=== PATIENT | female | born 1990 | race Caucasian/White ===

== ENCOUNTER 2016-10-29 15:00 | Emergency (ER) | payer MEDICAID ==
[~2016-10-29] VITALS: Ht 157.5 cm; Wt 76.0 kg
[~2016-10-29 15:00] MED LIST: BEN25 PO; DIAZ-90 PO; HYDR-3498 PO; HYDR-906 PO; IBUP-1542 PO; OMEP20CA9 PO
[2016-10-29 15:09] VITALS: Ht 157.5 cm; Wt 76.0 kg
--- NOTE | 2016-10-29 16:12 | RADRPT ---
PROCEDURE: Abdominal Ultrasound (right upper quadrant). CLINICAL INDICATION: Abdominal pain. TECHNIQUE: Multiple real-time longitudinal and transverse images of the right upper quadrant of th e abdomen were acquired utilizing a curved array transducer. Images were reviewed on a high-resoluti on PACS workstation. COMPARISON: None FINDINGS: The liver demonstrates increased echogenicity consistent with fatty infiltration. The liver is norm al in size. No focal masses are identified. There is borderline extrahepatic ductal dilatation, no rmal in the post cholecystectomy setting. The common bile duct measures 6.7 mm in diameter. The gal lbladder is surgically absent. The visualized portions of the pancreas are unremarkable with obscuration of the tail of the pancrea s. No free fluid is identified. There is no evidence of right hydronephrosis or renal calcification. The right kidney measures 11.1 cm in length. The visualized portions of the aorta and inferior vena cava are within normal limits. IMPRESSION: 1. Fatty infiltration of the liver. 2. Status post cholecystectomy. 3. Otherwise unremarkable right upper quadrant ultrasound. RPTAT: KK .Eron Villasenor MD, MD Date Time Electronically viewed and signed by .Eron Villasenor MD, MD on 10/29/2016 16:12 .B/
--- NOTE | 2016-10-29 16:34 | ERD ---
ER Documentation Chief Complaint Date/Time DATE: 10/29/16 TIME: 16:33 Chief Complaint Sent from MD for eval abdominal pain and 6 weeks HPI Patient is a 26-year-old female who is with a last normal menstrual period sometime in August 2016 who presents to the ED with mild pelvic pain and mild vaginal spotting that started today. She also states that she has had some mild epigastric and right upper quadrant pain. Denies vomiting or diarrhea. Denies fever or chills. She states that she went to her clinic at [facility] and was sent here for ultrasound. Denies other areas of abdominal pain. Denies constipation. Denies leg pain or leg swelling. Denies chest pain or cough or shortness of breath. No other complaints. ROS All systems reviewed and are negative except as per history of present illness. Medications Home Meds Active Scripts Diazepam* (Valium*) 5 Mg Tablet, 5 MG PO Q8, #10 TAB Prov:LEONARDA JALLOH PA-C 04/04/16 Diphenhydramine Hcl* (Benadryl*) 25 Mg Cap, 25 MG PO Q6, #30 CAP Prov:LEONARDA JALLOH PA-C 04/04/16 Ibuprofen* (Motrin*) 600 Mg Tab, 600 MG PO Q6, #30 TAB Prov:LEONARDA JALLOH PA-C 04/04/16 Hydrocodone/Acetaminophen (Logan 5-325 Tablet) 1 Each Tablet, 1 EACH PO Q4 for 15 Days, TAB Prov:LEONARDA JALLOH PA-C 04/04/16 Omeprazole* (Prilosec*) 20 Mg Capsule.dr, 20 MG PO DAILY, #60 CAP Prov:MANDEEP LEWIS DO 07/08/15 Ibuprofen* (Motrin*) 600 Mg Tab, 600 MG PO Q6H Y for PAIN AND OR ELEVATED TEMP, #30 TAB Prov:MANDEEP LEWIS DO 07/08/15 Hydrocodone Bit-Acetaminophen* (Logan*) 5-325 Mg Tab, 1 TAB PO Q6 Y for PAIN, # 20 TAB Prov:MANDEEP LEWIS DO 07/08/15 Allergies Allergies: Coded Allergies: No Known Allergies (Verified Allergy, Mild, 04/04/16) PMhx/Soc History of Surgery: Yes (C-SECTIONX2, CHOLECYSTECTOMY ) Anesthesia Reaction: No Hx Neurological Disorder: No Hx Respiratory Disorders: No Hx Cardiac Disorders: No Hx Psychiatric Problems: No Hx Miscellaneous Medical Probl: No Hx Alcohol Use: No Hx Substance Use: No Hx Tobacco Use: No Smoking Status: Never smoker FmHx Family History: No coronary disease, No diabetes, No other Physical Exam Vitals Vital Signs Date Time Temp Pulse Resp B/P Pulse Ox O2 Delivery O2 Flow Rate FiO2 10/29/16 15:09 99.2 52 20 111/62 100 Physical Exam GENERAL: Well-developed, well-nourished female. Appears in no acute distress. HEAD: Normocephalic, atraumatic. EYES: Pupils are equally reactive bilaterally. EOMs grossly intact. No conjunctival erythema. ENT: Moist mucous membranes. No uvula deviation. No kissing tonsils. No exudates. NECK: Supple. No lymphadenopathy or thyromegaly. No meningismus. negative kernig. negative brudinski. LUNG: Clear to auscultation bilaterally. No rhonchi, wheezing, rales or coarse breath sounds. HEART: Regular rate and rhythm. No murmurs, rubs or gallops. ABDOMEN: No scars, ecchymosis or rashes noted. Soft, and nondistended. Positive bowel sounds in all four quadrants. No rebound tenderness, no guarding. (-) McBurneys point tenderness. No CVA tenderness. Mild bilateral pelvic pain and suprapubic pain. Mild epigastric pain BACK: No midline tenderness. Extremities: Equal pulses bilaterally. No peripheral clubbing, cyanosis or edema. No unilateral leg swelling. NEUROLOGIC: Alert and oriented. Moving all four extremities. 5/5 strength in all extremities. Normal speech. Steady gait. SKIN: Normal color. Warm and dry. No rashes or lesions. Capillary refill < 2 seconds Result Diagram: 10/29/16 1630 10/29/16 1630 Results 24 hrs Laboratory Tests Test 10/29/16 16:25 10/29/16 16:30 Urine Color YELLOW Urine Clarity SLIGHTLY CLOUDY Urine pH 6.0 Urine Specific [place] 1.009 Urine Ketones NEGATIVEmg/dL Urine Nitrite NEGATIVEmg/dL Urine Bilirubin NEGATIVEmg/dL Urine Urobilinogen NEGATIVEmg/dL Urine Leukocyte Esterase NEGATIVELeu/ul Urine Microscopic RBC 1/HPF Urine Microscopic WBC 1/HPF Urine Squamous Epithelial Cells FEW/HPF Urine Bacteria FEW/HPF Urine Mucus FEW/HPF Urine Hemoglobin NEGATIVEmg/dL Urine Glucose NEGATIVEmg/dL Urine Total Protein NEGATIVEmg/dl White Blood Count 5.710^3/ul Red Blood Count 4.3410^6/ul Hemoglobin 12.8g/dl Hematocrit 37.4% Mean Corpuscular Volume 86.2fl Mean Corpuscular Hemoglobin 29.5pg Mean Corpuscular Hemoglobin Concent 34.2g/dl Red Cell Distribution Width 12.4% Platelet Count 13333^3/UL Mean Platelet Volume 10.4fl Neutrophils % 63.3% Lymphocytes % 29.2% Monocytes % 5.1% Eosinophils % 1.8% Basophils % 0.4% Nucleated Red Blood Cells % 0.0/100WBC Neutrophils # 3.610^3/ul Lymphocytes # 1.710^3/ul Monocytes # 0.310^3/ul Eosinophils # 0.110^3/ul Basophils # 0.010^3/ul Nucleated Red Blood Cells # 0.010^3/ul Sodium Level 141mmol/L Potassium Level 3.8mmol/L Chloride Level 102mmol/L Carbon Dioxide Level 25mmol/L Anion Gap 18 Blood Urea Nitrogen 4mg/dl Creatinine 0.55mg/dl Glucose Level 81mg/dl Calcium Level 10.4mg/dl Total Bilirubin 0.4mg/dl Direct Bilirubin 0.00mg/dl Indirect Bilirubin 0.4mg/dl Aspartate Amino Transf (AST/SGOT) 24IU/L Alanine Aminotransferase (ALT/SGPT) 38IU/L Alkaline Phosphatase 56IU/L Total Protein 8.4g/dl Albumin 5.0g/dl Globulin 3.40g/dl Albumin/Globulin Ratio 1.47 Lipase 69U/L Beta HCG, Quantitative 542339.0mIU/ml Procedures/MDM ER COURSE: I kept the patient and/or family informed of laboratory and diagnostic imaging results throughout the emergency room course. EKG, MONITORS, & DIAGNOSTIC IMAGIN [place] [address] Radiology Main Line: [phone] DIAGNOSTIC IMAGING REPORT Patient: FERMIN PINEDA : 1990 Age: 26 Sex: F MR #: [id number] DOS: 10/29/16 1540 Ordering MD: NIESHA DOMINGUEZ PA-C Location: [facility] Room/Bed: PROCEDURE: Abdominal Ultrasound (right upper quadrant). CLINICAL INDICATION: Abdominal pain. TECHNIQUE: Multiple real-time longitudinal and transverse images of the right upper quadrant of the abdomen were acquired utilizing a curved array transducer. Images were reviewed on a high-resolution PACS workstation. COMPARISON: None FINDINGS: The liver demonstrates increased echogenicity consistent with fatty infiltration. The liver is normal in size. No focal masses are identified. There is borderline extrahepatic ductal dilatation, normal in the post cholecystectomy setting. The common bile duct measures 6.7 mm in diameter. The gallbladder is surgically absent. The visualized portions of the pancreas are unremarkable with obscuration of the tail of the pancreas. No free fluid is identified. There is no evidence of right hydronephrosis or renal calcification. The right kidney measures 11.1 cm in length. The visualized portions of the aorta and inferior vena cava are within normal limits. IMPRESSION: 1. Fatty infiltration of the liver. 2. Status post cholecystectomy. 3. Otherwise unremarkable right upper quadrant ultrasound. RPTAT: KK .Eron Villasenor MD, MD Date Time Electronically viewed and signed by .Eron Villasenor MD, MD on 2016 16:12 .B/ CC: NIESHA DOMINGUEZ PA-C [place] [address] Radiology Main Line: [phone] DIAGNOSTIC IMAGING REPORT Patient: FERMIN PINEDA : 1990 Age: 26 Sex: F MR #: [id number] DOS: 10/29/16 1540 Ordering MD: NIESHA DOMINGUEZ PA-C Location: [facility] Room/Bed: PROCEDURE: US OB. CLINICAL INDICATION: , vaginal bleeding. TECHNIQUE: Transabdominal and transvaginal views of the pelvis are available for review. COMPARISON: No prior studies are available for comparison. FINDINGS: There is a single intrauterine gestation with visualization of a gestational sac , yolk sac, pole and cardiac activity at 161 beats per minute. Mean gestational sac size is 4.59 cm consistent with 70-tsvo-1-day gestation. Jay- rump length is 4.08 cm consistent with 05-rruf-0-day gestation. There is a subchorionic hemorrhage present. There are no adnexal masses. The right ovary is not visualized. The left ovary measures 4.5 x 1.9 x 3.3 cm. There is a corpus luteal cyst in the left ovary. IMPRESSION: 1. Single living intrauterine gestation with a mean gestational age by ultrasound of 10 weeks 5 days plus or minus 5 days. Estimated date of delivery is 05/22/2017. 2. Subchorionic hemorrhage. 3. 1.8 cm corpus luteal cyst in the left ovary.. RPTAT: A[facility] Physician Andrea Date Time Electronically viewed and signed by Tunde Mortensen Physician on 10/29/2016 16: 52 JH/ CC: NIESHA DOMINGUEZ PA-C LAB INTERPRETATION: CBC showed no evidence of systemic infection or severe anemia. CMP showed no evidence of electrolyte abnormalities, severe acidosis, alkalosis, renal failure , or liver disease. Lipase showed no evidence of acute pancreatitis. UA showed no evidence of leukocytes, nitrites or hematuria. RH: A+ C MEDICAL DECISION MAKING: This is a 26-year-old female who presents with who presents with bilateral pelvic pain and slight bleeding 1 day. Vital signs were reviewed. Patient is afebrile. Patient is not hypoxic. Patient is not toxic or ill- appearing. Her ultrasound is read by radiologist shows a single living intrauterine gestation with a mean age of 10 weeks. Gallbladder ultrasound was within normal limits. Her blood work was within normal limits. Low suspicion for ACS, AAA, perforated ulcer, bowel obstruction, cholecystitis, choledocholithiasis, cholangitis, pancreatitis, hepatic abscess, appendicitis, diverticulitis, gastroenteritis, hepatitis, peptic ulcer disease. Low suspicion for ectopic , , molar , endometriosis, PID, cervicitis, septic , molar , HELLP syndrome, preeclampsia, eclampsia, placenta previa, placenta abruptia. DISCHARGE: At this time, patient is stable for discharge and outpatient management with no new complaints during the ER course. Patient was sent home with copy of all imaging and laboratory studies and to follow-up with OB in 2 days. Patient will be discharged home with instructions to recheck for new or worsening symptoms such as fever, nausea, weakness, LOC and to follow up with primary care in the next 1-2 days. Patient was advised to return to the ER for any new or worsening symptoms. Plan was discussed and patient and/or family understands and agrees. Home instructions were given. Departure Diagnosis: Primary Impression: Vaginal bleeding before 22 weeks gestation Condition: Stable NIESHA DOMINGUEZ PA-C Oct 29, 2016 16:34
[2016-10-29 16:42] LABS: ADD UMIC NO; UR ASCORBIC ACID NEGATIVE (NEGATIVE); UR BACTERIA FEW /HPF (NONE SEEN); UR BILIRUBIN (Dip) NEGATIVE (NEGATIVE); UR BLOOD (Dip) NEGATIVE (NEGATIVE); UR CLARITY SLIGHTLY CLOUDY (CLEAR); UR COLOR YELLOW (YELLOW); UR GLUCOSE (Dip) NEGATIVE (NEGATIVE); UR KETONES (Dip) NEGATIVE (NEGATIVE); UR LEUKOCYTE ESTERASE (Dip) NEGATIVE Leu/ul (NEGATIVE); UR MUCUS FEW /HPF (NONE SEEN); UR NITRITE (Dip) NEGATIVE (NEGATIVE); UR RBC 1 /HPF (0-5); UR SPECIFIC GRAVITY (Dip) 1.009 (1.003-1.030); UR SQUAMOUS EPITHELIAL CELL FEW /HPF (FEW); UR TOTAL PROTEIN (Dip) NEGATIVE (NEGATIVE); UR UROBILINOGEN (Dip) NEGATIVE (NEGATIVE)
[2016-10-29 16:46] LABS: BASOPHILS % 0.4 % (0.0-2.0); EOSINOPHILS # 0.1 10^3/ul (0.0-0.5); EOSINOPHILS % 1.8 % (0.0-7.0); HEMATOCRIT 37.4 % (37.0-47.0); HEMOGLOBIN 12.8 g/dl (12.0-16.0); LYMPHOCYTES # 1.7 10^3/ul (0.8-2.9); LYMPHOCYTES % 29.2 % (15.0-51.0); MEAN CORPUSCULAR HEMOGLOBIN 29.5 pg (29.0-33.0); MEAN CORPUSCULAR HGB CONC 34.2 g/dl (32.0-37.0); MEAN CORPUSCULAR VOLUME 86.2 fl (82.0-101.0); MEAN PLATELET VOLUME 10.4 fl (7.4-10.4); MONOCYTE # 0.3 10^3/ul (0.3-0.9); MONOCYTES % 5.1 % (0.0-11.0); NEUTROPHIL # 3.6 10^3/ul (1.6-7.5); NEUTROPHILS % 63.3 % (39.0-77.0); PLATELET COUNT 203 10^3/UL (140-415); RED BLOOD COUNT 4.34 10^6/ul (4.20-5.40); RED CELL DISTRIBUTION WIDTH 12.4 % (11.5-14.5); WHITE BLOOD COUNT 5.7 10^3/ul (4.8-10.8)
--- NOTE | 2016-10-29 16:52 | RADRPT ---
PROCEDURE: US OB. CLINICAL INDICATION: , vaginal bleeding. TECHNIQUE: Transabdominal and transvaginal views of the pelvis are available for review. COMPARISON: No prior studies are available for comparison. FINDINGS: There is a single intrauterine gestation with visualization of a gestational sac, yolk sac, po le and cardiac activity at 161 beats per minute. Mean gestational sac size is 4.59 cm consistent wi th 27-tcpn-0-day gestation. [place]-rump length is 4.08 cm consistent with 24-lgrw-3-day gestation. There is a subchorionic hemorrhage present. There are no adnexal masses. The right ovary is not vi sualized. The left ovary measures 4.5 x 1.9 x 3.3 cm. There is a corpus luteal cyst in the left ov michael. IMPRESSION: 1. Single living intrauterine gestation with a mean gestational age by ultrasound of 10 weeks 5 days plus or minus 5 days. Estimated date of delivery is 05/22/2017. 2. Subchorionic hemorrhage. 3. 1.8 cm corpus luteal cyst in the left ovary.. RPTAT: AACC Physician Andrea Date Time Electronically viewed and signed by Physician Andrea on 10/29/2016 16:52 /
[2016-10-29 17:04] LABS: ALBUMIN/GLOBULIN RATIO 1.47; BILIRUBIN,INDIRECT 0.4 mg/dl (0-1.1); BILIRUBIN,TOTAL 0.4 mg/dl (0.2-1.3); CALCIUM 10.4 mg/dl (8.4-10.2); CREATININE 0.55 mg/dl (0.44-1.00); POTASSIUM 3.8 mmol/L (3.5-5.1); TOTAL PROTEIN 8.4 g/dl (6.1-8.1)
[2016-10-29 18:29] VITALS: BP 109/59; PULSE 58; RESP 20; TEMP 99.2
== END 2016-10-29 18:31 | disposition home or self-care (01) ==
LOC: FTE 15:00
DX: O20.9 Hemorrhage in early pregnancy, unspecified (principal); R10.2 Pelvic and perineal pain; Z3A.01 Less than 8 weeks gestation of pregnancy
CPT/HCPCS: 36415; 76705; 76801; 80053; 81001; 81003; 83690; 84702; 85025; 86900; 86901

== ENCOUNTER 2017-05-07 21:52 | Inpatient (IN) | END 2017-05-10 14:20 | disposition home or self-care (01) | DRG 766 ==